=== PATIENT | female | born 1990 | race Caucasian/White ===

== ENCOUNTER 2020-06-30 20:56 | Emergency (ER) | payer OTHER ==
[2020-07-01] MEDS ORDERED: AUGMENTIN 875-1 EACH PO (03:07)
[2020-07-01] MEDS ORDERED: NAPROSYN500 MG PO (03:07)
== END 2020-07-01 03:30 | disposition home or self-care (01) ==
LOC: ER1 20:56
DX: S90.851A Superficial foreign body, right foot, initial encounter (principal); S93.402A Sprain of unspecified ligament of left ankle, initial encounter; S93.602A Unspecified sprain of left foot, initial encounter; V89.2XXA Person injured in unspecified motor-vehicle accident, traffic, initial encounter; Y92.009 Unspecified place in unspecified non-institutional (private) residence as the place of occurrence of the external cause; Z23 Encounter for immunization; F17.210 Nicotine dependence, cigarettes, uncomplicated
CPT/HCPCS: 28190; 73080; 73130; 73562; 73610; 73630; 90471; 90715; 99283

== ENCOUNTER → 2020-07-28 | Outpatient (CLI) | payer OTHER ==
[~2020-07-28] MED LIST: AUGMENTIN 875-1 EACH PO; NAPROSYN500 MG PO
== END ==
LOC: KOH-I 14:34
DX: M25.572 Pain in left ankle and joints of left foot (principal); M25.571 Pain in right ankle and joints of right foot; M79.672 Pain in left foot; M79.671 Pain in right foot
CPT/HCPCS: 73610; 73630

== ENCOUNTER 2021-12-01 15:03 | Inpatient (IN) | payer OTHER ==
[~2021-12-01] VITALS: Ht 160 cm; Wt 85.3 kg
[2021-12-01 16:39] LABS: HEMOGLOBIN 11.5 gm/dl (12.3-15.3); RED BLOOD COUNT 4.18 M/UL (4.00-5.10); WHITE BLOOD COUNT 14.3 K/UL (4.5-11.0)
[2021-12-02] MEDS ORDERED: COLACE100 MG PO (01:30)
[2021-12-02] MEDS ORDERED: IBUPROFEN600 MG PO (01:30)
[2021-12-03 04:31] LABS: HEMOGLOBIN 10.6 gm/dl (12.3-15.3)
== END 2021-12-03 13:25 | disposition home or self-care (01) | DRG 807 ==
LOC: GENOP 15:03 → OB 16:00
PROVIDERS: ADMIT Obstetrics & Gynecology
PROC: 10E0XZZ Delivery of Products of Conception, External Approach (ICD-10-PCS; principal; 2021-12-02)
PROC: 3E033VJ Introduction of Other Hormone into Peripheral Vein, Percutaneous Approach (ICD-10-PCS; 2021-12-02)
PROC: 4A1H7CZ Monitoring of Products of Conception, Cardiac Rate, Via Natural or Artificial Opening (ICD-10-PCS; 2021-12-02)
PROC: 10H073Z Insertion of Monitoring Electrode into Products of Conception, Via Natural or Artificial Opening (ICD-10-PCS; 2021-12-02)
PROC: 0UH97HZ Insertion of Contraceptive Device into Uterus, Via Natural or Artificial Opening (ICD-10-PCS; 2021-12-02)
DX: O42.02 Full-term premature rupture of membranes, onset of labor within 24 hours of rupture (principal); Z37.0 Single live birth; O99.334 Smoking (tobacco) complicating childbirth; F17.210 Nicotine dependence, cigarettes, uncomplicated; Z3A.39 39 weeks gestation of pregnancy; Z28.310 Unvaccinated for COVID-19; O69.81X0 Labor and delivery complicated by cord around neck, without compression, not applicable or unspecified
CPT/HCPCS: 85014; 85018; 85025; J2590; J3430